=== PATIENT | male | born 1965 | race Caucasian/White ===

== ENCOUNTER 2017-01-02 20:07 | Emergency (ER) | payer SELFPAY ==
--- NOTE | 2017-01-02 20:55 | Cat Scan Report ---
FINAL REPORT EXAM: CT HEAD/BRAIN WO CON HISTORY: neuro deficits \T\lt; 6hrs or sx present upon awakening TECHNIQUE: Noncontrast serial axial images from skull base to vertex. PRIORS: None. FINDINGS: There is no mass effect or midline shift. There are no abnormal intra or extra-axial fluid collections. Cortical sulci and lateral ventricles are within normal limits for size and configuration. Basilar cisterns are patent. No acute intracranial hemorrhage is identified. There is a 5 millimeter hypodense focus in the region the anterior aspect of the left thalamus. Atherosclerotic calcifications are noted. Visualized paranasal sinuses and mastoid air cells are well aerated. No acute osseous abnormality is identified. IMPRESSION: 1. No abnormal mass or acute intracranial hemorrhage is identified. 2. Asymmetric hypodense focus in the anterior aspect of the left thalamus may represent sequelae from infarct. Chronicity is uncertain. There are currently no studies available for direct comparison. 3. If there is concern for acute or subacute infarct, consider MRI with diffusion-weighted imaging for further evaluation.
[2017-01-02 21:08] LABS: Basophils % (Auto) 0.6 % (0.0-1.8); Eosinophils % (Auto) 2.2 % (0.0-4.3); Hematocrit 38.2 % (35.5-45.6); Hemoglobin 12.8 gm/dl (11.8-15.2); Mean Corpuscular HGB Conc 34 % (32-34); Mean Corpuscular Hemoglobin 30 pg (28-32); Mean Corpuscular Volume 89 fl (84-94); Platelet Count 299 K/mm3 (140-440); Red Cell Distribution Width 14.1 % (13.2-15.2); White Blood Count 10.5 K/mm3 (4.5-11.0)
[2017-01-02] MEDS ORDERED: ASPIRIN PO ONE (21:09)
--- NOTE | 2017-01-02 21:10 | Emergency Department Report ---
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 He is previously unknown to me. He reports a history of diabetes, hypertension and stroke. His last stroke was in 2014. He reports compliance with aspirin therapy. The patient reports that he woke up with symptoms today which made him think of his prior stroke. He reported right -sided facial numbness, slurred speech, right leg, right arm numbness. Patient also indicated mild right-sided facial droop. To me, the patient complained of left-sided headache 2 days ago which has since resolved. He currently denies headache, neck pain, chest pain, abdominal pain, shortness of breath, nausea, vomiting, diarrhea, irritative, obstructive urinary symptoms. Patient woke up with symptoms, he is therefore not a TPA candidate. -: Gradual Location: head, right, upper extremity, lower extremity Consistency: constant Improves with: none Worsens with: none Associated Symptoms: headaches - Related Data Allergies Allergy/AdvReac Type Severity Reaction Status Date / Time No Known Allergies Allergy Verified 01/02/17 20:11 ED Review of Systems ROS: Stated complaint: R SIDE NUMBNESS Other details as noted in HPI Constitutional: denies: fever Eyes: denies: eye discharge ENT: denies: epistaxis Respiratory: denies: cough Cardiovascular: denies: chest pain Gastrointestinal: denies: nausea Genitourinary: as per HPI Musculoskeletal: as per HPI Skin: as per HPI Neurological: headache ED Past Medical Hx - Past Medical History Previous Medical History?: Yes Hx Hypertension: Yes Hx CVA: Yes (2014) Hx Diabetes: Yes - Surgical History Past Surgical History?: Yes Hx Cholecystectomy: Yes - Social History Smoking Status: Current Every Day Smoker Substance Use Type: None ED Physical Exam - General Limitations: Language Barrier General appearance: alert, in no apparent distress - Head Head exam: Present: atraumatic, normocephalic - Eye Eye exam: Present: normal appearance, EOMI. Absent: nystagmus - ENT ENT exam: Present: normal exam, normal orophraynx, mucous membranes moist, normal external ear exam - Neck Neck exam: Present: normal inspection, full ROM. Absent: tenderness, meningismus - Respiratory Respiratory exam: Present: normal lung sounds bilaterally. Absent: respiratory distress, wheezes, rales, rhonchi, stridor, chest wall tenderness, accessory muscle use, decreased breath sounds, prolonged expiratory - Cardiovascular Cardiovascular Exam: Present: regular rate, normal rhythm, normal heart sounds. Absent: bradycardia, tachycardia, irregular rhythm, systolic murmur, diastolic murmur, rubs, gallop - GI/Abdominal GI/Abdominal exam: Present: soft, normal bowel sounds. Absent: distended, tenderness, guarding, rebound, rigid - Rectal Rectal exam: Present: deferred - Extremities Exam Extremities exam: Present: normal inspection, full ROM, normal capillary refill. Absent: tenderness, pedal edema, joint swelling, calf tenderness - Back Exam Back exam: Present: normal inspection, full ROM. Absent: tenderness, CVA tenderness (R), CVA tenderness (L), muscle spasm, paraspinal tenderness, vertebral tenderness - Neurological Exam Neurological exam: Present: alert, oriented X3, normal gait, other (Extraocular movements intact. Tongue midline. No facial droop. Facial sensation intact to light touch in the V1, V2, V3 distribution bilaterally. 5 and 5 strength in 4 extremities.. Sensation is intact to light touch in 4 extremities.). Absent : motor sensory deficit - Psychiatric Psychiatric exam: Present: normal affect, normal mood - Skin Skin exam: Present: warm, dry, intact, normal color. Absent: rash ED Course Vital Signs 01/02/17 01/02/17 01/02/17 20:11 20:22 20:52 Temperature 98.3 F Pulse Rate 92 H 80 81 Respiratory 20 20 17 Rate Blood Pressure 169/96 154/89 O2 Sat by Pulse 99 98 96 Oximetry 01/02/17 01/02/17 01/02/17 21:00 21:10 21:20 Temperature Pulse Rate 78 80 77 Respiratory 15 27 H 21 Rate Blood Pressure 146/80 146/80 146/80 O2 Sat by Pulse 96 97 97 Oximetry 01/02/17 01/02/17 01/02/17 21:30 21:40 21:50 Temperature Pulse Rate 76 Respiratory 16 26 H 17 Rate Blood Pressure 138/70 138/70 138/70 O2 Sat by Pulse 96 98 97 Oximetry 01/02/17 01/02/17 01/02/17 22:00 22:10 22:20 Temperature Pulse Rate Respiratory Rate Blood Pressure 137/78 137/78 137/82 O2 Sat by Pulse 98 97 97 Oximetry 01/02/17 01/02/17 01/02/17 22:30 22:40 22:50 Temperature Pulse Rate 73 62 72 Respiratory Rate Blood Pressure 119/77 119/77 138/71 O2 Sat by Pulse 98 97 98 Oximetry 01/02/17 01/02/17 01/02/17 23:00 23:10 23:20 Temperature Pulse Rate 85 77 74 Respiratory Rate Blood Pressure 168/109 168/109 154/82 O2 Sat by Pulse 98 97 97 Oximetry 01/02/17 01/02/17 01/02/17 23:30 23:32 23:40 Temperature Pulse Rate 72 73 71 Respiratory Rate Blood Pressure 152/80 152/80 152/80 O2 Sat by Pulse 97 96 96 Oximetry 01/02/17 01/03/17 01/03/17 23:50 00:00 00:10 Temperature Pulse Rate 75 82 76 Respiratory Rate Blood Pressure 139/74 139/74 107/81 O2 Sat by Pulse 98 98 98 Oximetry 01/03/17 00:20 Temperature Pulse Rate 71 Respiratory Rate Blood Pressure 121/67 O2 Sat by Pulse 97 Oximetry - Reevaluation(s) Reevaluation #1: 01/02/17 22:19 differential diagnosis: Stroke, pneumonia, urinary tract infection Assessment and plan: 51-year-old male with reported history of speech disturbance, arm and leg weakness, facial droop, none of which I can detect on my physical examination. A noncontrast CT scan of the brain was negative for hemorrhage, but demonstrated nonspecific findings. Aspirin is ordered. Patient is not a thrombolysis candidate as he woke up with symptoms. The case was discussed with Hospital physician, Dr. Nash who requested transfer as this hospital does not have neurology sales correspondence clerk for the next 48 hours. , Reevaluation #2: 01/02/17 22:45 Dr Sauceda of [facility] accepts the patient the patient as a transfer ED Medical Decision Making - Lab Data Result diagrams: 01/02/17 20:45 01/02/17 20:45 Vital Signs 01/02/17 01/02/17 01/02/17 20:11 20:22 20:52 Temperature 98.3 F Pulse Rate 92 H 80 81 Respiratory 20 20 17 Rate Blood Pressure 169/96 154/89 O2 Sat by Pulse 99 98 96 Oximetry 01/02/17 01/02/17 01/02/17 21:00 21:10 21:20 Temperature Pulse Rate 78 80 77 Respiratory 15 27 H 21 Rate Blood Pressure 146/80 146/80 146/80 O2 Sat by Pulse 96 97 97 Oximetry 01/02/17 21:30 Temperature Pulse Rate 76 Respiratory 16 Rate Blood Pressure 138/70 O2 Sat by Pulse 96 Oximetry Lab Results 01/02/17 01/02/17 01/02/17 Range/Units 20:45 20:45 20:45 WBC 10.5 (4.5-11.0) K/mm3 RBC 4.30 (3.65-5.03) M/mm3 Hgb 12.8 (11.8-15.2) gm/dl Hct 38.2 (35.5-45.6) % MCV 89 (84-94) fl MCH 30 (28-32) pg MCHC 34 (32-34) % RDW 14.1 (13.2-15.2) % Plt Count 299 (140-440) K/mm3 Lymph % (Auto) 33.8 (13.4-35.0) % [place] % (Auto) 8.6 H (0.0-7.3) % Eos % (Auto) 2.2 (0.0-4.3) % Baso % (Auto) 0.6 (0.0-1.8) % Lymph # 3.6 (1.2-5.4) K/mm3 [place] # 0.9 H (0.0-0.8) K/mm3 Eos # 0.2 (0.0-0.4) K/mm3 Baso # 0.1 (0.0-0.1) K/mm3 Seg Neutrophils % 54.8 (40.0-70.0) % Seg Neutrophils # 5.8 (1.8-7.7) K/mm3 PT 12.6 (12.2-14.9) Sec. INR 0.95 (0.87-1.13) APTT 28.6 (24.2-36.6) Sec. Thrombin Time (15.1-19.6) Sec. Sodium 136 L (137-145) mmol/L Potassium 4.4 (3.6-5.0) mmol/L Chloride 97.9 L (98-107) mmol/L Carbon Dioxide 22 (22-30) mmol/L Anion Gap 21 mmol/L BUN 22 H (9-20) mg/dL Creatinine 1.4 (0.8-1.5) mg/dL Estimated GFR 53 ml/min BUN/Creatinine Ratio 15.71 % Glucose 401 H (75-100) mg/dL Calcium 9.0 (8.4-10.2) mg/dL Troponin T < 0.010 (0.00-0.029) ng/mL Urine Color (Yellow) Urine Turbidity (Clear) Urine pH (5.0-7.0) Ur Specific [place] (1.003-1.030) Urine Protein (Negative) mg/dL Urine Glucose (UA) (Negative) mg/dL Urine Ketones (Negative) mg/dL Urine Blood (Negative) Urine Nitrite (Negative) Urine Bilirubin (Negative) Urine Urobilinogen (<2.0) mg/dL Ur Leukocyte Esterase (Negative) Urine WBC (Auto) (0.0-6.0) /HPF Urine RBC (Auto) (0.0-6.0) /HPF U Epithel Cells (Auto) (0-13.0) /HPF 01/02/17 01/02/17 Range/Units 20:45 21:41 WBC (4.5-11.0) K/mm3 RBC (3.65-5.03) M/mm3 Hgb (11.8-15.2) gm/dl Hct (35.5-45.6) % MCV (84-94) fl MCH (28-32) pg MCHC (32-34) % RDW (13.2-15.2) % Plt Count (140-440) K/mm3 Lymph % (Auto) (13.4-35.0) % [place] % (Auto) (0.0-7.3) % Eos % (Auto) (0.0-4.3) % Baso % (Auto) (0.0-1.8) % Lymph # (1.2-5.4) K/mm3 [place] # (0.0-0.8) K/mm3 Eos # (0.0-0.4) K/mm3 Baso # (0.0-0.1) K/mm3 Seg Neutrophils % (40.0-70.0) % Seg Neutrophils # (1.8-7.7) K/mm3 PT (12.2-14.9) Sec. INR (0.87-1.13) APTT (24.2-36.6) Sec. Thrombin Time 15.5 (15.1-19.6) Sec. Sodium (137-145) mmol/L Potassium (3.6-5.0) mmol/L Chloride (98-107) mmol/L Carbon Dioxide (22-30) mmol/L Anion Gap mmol/L BUN (9-20) mg/dL Creatinine (0.8-1.5) mg/dL Estimated GFR ml/min BUN/Creatinine Ratio % Glucose (75-100) mg/dL Calcium (8.4-10.2) mg/dL Troponin T (0.00-0.029) ng/mL Urine Color Straw (Yellow) Urine Turbidity Clear (Clear) Urine pH 6.0 (5.0-7.0) Ur Specific [place] 1.016 (1.003-1.030) Urine Protein 30 mg/dl (Negative) mg/dL Urine Glucose (UA) >=500 (Negative) mg/dL Urine Ketones Neg (Negative) mg/dL Urine Blood Neg (Negative) Urine Nitrite Neg (Negative) Urine Bilirubin Neg (Negative) Urine Urobilinogen < 2.0 (<2.0) mg/dL Ur Leukocyte Esterase Neg (Negative) Urine WBC (Auto) 0.0 (0.0-6.0) /HPF Urine RBC (Auto) 2.0 (0.0-6.0) /HPF U Epithel Cells (Auto) < 1.0 (0-13.0) /HPF - EKG Data -: EKG Interpreted by Me EKG shows normal: sinus rhythm, axis, intervals, QRS complexes, ST-T waves - EKG Data When compared to previous EKG there are: previous EKG unavailable - Radiology Data Radiology results: report reviewed, image reviewed interpreted by me: X-ray the chest is negative for acute disease. Noncontrast CT scan of the brain negative for masses and or intracranial hemorrhage. There is a 5 mm hypodense focus in the region of the anterior aspect of the left thalamus. Atherosclerotic calcifications are noted. Critical care attestation.: If time is entered above; I have spent that time in minutes in the direct care of this critically ill patient, excluding procedure time. ED Disposition Clinical Impression: Right arm numbness, History of speech problem Disposition: DC/TX SHORT-TERM GEN HOSP INPT Is pt being admited?: Yes Condition: Good Referrals: PRIMARY CARE, [Primary Care Provider] - 3-5 Days
[2017-01-02 21:15] LABS: INR 0.95 (0.87-1.13)
[2017-01-02 21:16] LABS: Partial Thromboplastin Time 28.6 Sec. (24.2-36.6)
[2017-01-02 21:29] LABS: Anion Gap 21 mmol/L; BUN/Creatinine Ratio 15.71; Blood Urea Nitrogen 22 mg/dL (9-20); Carbon Dioxide 22 mmol/L (22-30); Chloride 97.9 mmol/L (98-107); Glucose 401 mg/dL (75-100); Potassium 4.4 mmol/L (3.6-5.0); Sodium 136 mmol/L (137-145)
[2017-01-02 21:59] LABS: Bilirubin,Urine NEG (Negative); Blood,Urine NEG (Negative); Ketones,Urine NEG (Negative); Leukocyte Esterase,Urine NEG (Negative); Nitrite,Urine NEG (Negative); Urobilinogen,Urine < 2.0 mg/dL (<2.0)
[2017-01-03 00:29] VITALS: BP 121/67
--- NOTE | 2017-01-03 10:29 | XRay Report ---
AP CHEST: HISTORY: Stroke AP view of the chest demonstrates a normal mediastinal and cardiac contour with clear lungs and normal bony and soft tissue structures. IMPRESSION: Unremarkable AP chest.
== END 2017-01-03 00:40 | disposition short-term general hospital (02) ==
LOC: ED 20:07
DX: R20.0 Anesthesia of skin (principal); I10 Essential (primary) hypertension; E11.9 Type 2 diabetes mellitus without complications; F17.200 Nicotine dependence, unspecified, uncomplicated
CPT/HCPCS: 36415; 70450; 71010; 80048; 81001; 82962; 84484; 85025; 85610; 85670; 85730; 93005; 93010; 96374; J1815